=== PATIENT | female | born 1945 | race Caucasian/White ===

== ENCOUNTER → 2016-12-20 | Outpatient (CLI) | payer MEDICARE, OTHER ==
[~2016-12-20] MED LIST: CYAN1TAB46 PO; CYCL-208 PO; GABA-215 PO; LEVO75TA9 PO; [UNRECOGNIZED DRUG - CODE] PO; [UNRECOGNIZED DRUG - CODE] PO; [UNRECOGNIZED DRUG - CODE] PO
== END ==
LOC: IMA 13:50
PROVIDERS: ATTEND Orthopaedic Surgery
DX: Z78.0 Asymptomatic menopausal state (principal); E07.9 Disorder of thyroid, unspecified; R29.890 Loss of height; Z90.710 Acquired absence of both cervix and uterus